=== PATIENT | female | born 1990 | race African-American/Black ===

== ENCOUNTER 2022-01-16 14:49 | Outpatient (CLI) | payer BC, SELFPAY ==
--- NOTE | ~2022-01-16 | US_ITS ---
EXAMINATION: US OB <= 14 weeks fetus DATE: 01/16/2022 16:14 INDICATION: Encounter for supervision of normal . First trimester. TECHNIQUE: Real-time transabdominal and transvaginal pelvic ultrasound was performed. COMPARISON: None. FINDINGS: TRANSABDOMINAL ULTRASOUND: The uterus measures 17.2 x 11.1 x 8.6 cm. TRANSVAGINAL ULTRASOUND: There are two intrauterine gestational sacs divided by a thin membrane with subjectively normal volume of fluid in each sac. The placenta(s) is/are fundal. Fetus A is closer to the cervix with crown rump length measuring 7.0 cm, which correlates with an estimated gestational a ge of 13 weeks and 1 day +/- 1 week and 1 day. Fetus B is more fundal and to the right with crown rum p length of 7.1 cm, which correlates with an estimated gestational age of 13 weeks and 2 days +/- 1 w ho-chunk and 1 day. heart motion is identified measuring 155 beats per minute (bpm) in Fetus A and 147 bpm in Fetus B by M-mode Doppler. There is a 9.2 cm subserosal fibroid in the lower uterine segme nt. The right ovary is not visualized. The left ovary measures 4.3 x 2.5 x 3.5 cm. There is no free f luid in the pelvis. IMPRESSION: 1. Living diamniotic twins, which may be monochorionic or dichorionic with estimated date of deliver y of 07/22/22. 2. Large uterine fibroid. Reviewed, dictated and finalized at location E. IMPRESSION: 1. Living diamniotic twins, which may be monochorionic or dichorionic with est imated date of delivery of 07/22/22. 2. Large uterine fibroid.
== END 2022-01-16 14:50 | disposition home or self-care (01) ==
PROVIDERS: Visit Provider Obstetrics & Gynecology
DX: O30.031 Twin pregnancy, monochorionic/diamniotic, first trimester (principal); D25.9 Leiomyoma of uterus, unspecified; Z3A.00 Weeks of gestation of pregnancy not specified
CPT/HCPCS: 76801

== ENCOUNTER 2022-02-27 00:30 | Emergency (ER) | payer BC, SELFPAY ==
--- NOTE | 2022-02-27 01:03 | ED.PREGNANCY ---
HPI - General Chief complaint: Vaginal Bleeding <Heather Paulino PA-C - Last Filed: 02/27/22 03:44> Stated complaint: vaginal bleeding, 18wks preg <CLAY Trujillo Last Filed: 02/27/22 03:44> Time Seen by Provider: 02/27/22 00:42 <CLAY Trujillo Last Filed: 02/27/22 03:44> Source: patient <CLAY Trujillo Last Filed: 02/27/22 03:44> Mode of arrival: ambulatory <CLAY Trujillo Last Filed: 02/27/22 03:44> Limitations: no limitations <CLAY Trujillo Last Filed: 02/27/22 03:44> History of Present Illness HPI Narrative: Patient is a 32-year-old female who presents the ED with report of vaginal spotting. Patient is currently 18 weeks with twins. She had been seeing Dr. Tracey with [facility] until last week. She is in the process of transferring her care to [facility] with maternal- medicine there. She is scheduled to have her first appointment next week. Patient reports she went to the bathroom around midnight 02/27 and noticed light brown vaginal spotting with wiping. She denied any bright red blood. She has not noticed any further spotting since then. She denies any cramping pain. Denies any headache, vision changes, nausea, vomiting, swelling. She has been feeling well the last couple days. She denies ever having vaginal bleeding like this before throughout her . She denies any recent strenuous activity, intercourse, physical exertion. <Heather Paulino PA-C - Last Filed: 02/27/22 03:44> Related Data Allergies/Adverse reactions: Allergies Allergy/AdvReac Type Severity Reaction Status Date / Time No Known Allergies Allergy Unverified 11/28/13 08:35 <CLAY Trujillo Last Filed: 02/27/22 03:44> Review of Systems Review of Systems: CONSTITUTIONAL: Denies fever, chills, or sweats. EYES: Denies visual changes. CARDIOVASCULAR: Denies chest pain. RESPIRATORY: Denies dyspnea. GASTROINTESTINAL: Denies abdominal pain or cramping, nausea, vomiting, or diarrhea. GENITOURINARY: Reports light brown vaginal spotting. Denies bright red bleeding, dysuria or hematuria. MUSCULOSKELETAL: Denies back pain. NEUROLOGIC: Denies headache, numbness, or weakness. <Heather Paulino PA-C - Last Filed: 02/27/22 03:44> All systems reviewed & are unremarkable except as noted in HPI and below <Heather Paulino PA-C - Last Filed: 02/27/22 03:44> PMFSH Past Medical History Medical History: Medical History (Updated 02/27/22 @ 03:32 by Heather Paulino PA-C) No pertinent past medical history <Heather Paulino PA-C - Last Filed: 02/27/22 03:44> Surgical History Surgical History: Surgical History (Updated 02/27/22 @ 01:12 by Heather Paulino PA-C) No significant past surgical history <Heather Paulino PA-C - Last Filed: 02/27/22 03:44> Social History Social History: Social History (Updated 02/27/22 @ 01:12 by Heather Paulino PA-C) Smoking status: Never smoker <Heather Paulino PA-C - Last Filed: 02/27/22 03:44> Exam Narrative: GENERAL: Well appearing, well-nourished, non-toxic, in no acute distress. HEAD: Normocephalic, atraumatic. NECK: Supple. No adenopathy, no masses. RESPIRATORY: Airway patent, respirations nonlabored. Clear to auscultation bilaterally, no rales, rhonchi, wheezing. CARDIOVASCULAR: Regular rate and rhythm without murmurs, rubs, or gallops. Peripheral pulses 2+ and equal bilaterally. ABDOMINAL: Soft, uterus gravid, no tenderness to palpation, nondistended, no hepatosplenomegaly. PELVIC: Normal external genitalia. Cervical os closed. No CMT. Mild amount of physiologic discharge. Very scant amount of light pink blood. No pooling of blood. No bright red blood. MUSCULOSKELETAL: Moves all extremities. Strength/ROM intact without gross deformities or TTP. No edema. SKIN: Warm, dry, normal color. No rashes. NEURO: A&O X3. Speech clear. Cranial nerves II-XII grossly intact. Steady gait. No ataxic m
[2022-02-27 01:14] VITALS: BP 137/80; PULSE 91; RESP 18; O2SAT 99
[2022-02-27 01:29] VITALS: BP 150/82; PULSE 91; RESP 16; TEMP 36.8; O2SAT 98
[2022-02-27 01:58] LABS: Basophils Percent Auto 0.2 % (0.2-1.2); Eosinophils Absolute Auto 0.3 K/mm3 (0-0.3); Eosinophils Percent Auto 3.4 % (0-4.4); Hematocrit 30.5 % (37.0-47.0); Hemoglobin 10.2 g/dL (12.0-15.0); Immature Granulocyte Absolute 0.04 K/mm3 (0.00-0.031); Immature Granulocyte Percent A 0.5 % (0-0.5); Lymphocytes Percent Auto 22.5 % (18.3-44.2); Mean Corpuscular HGB Conc 33.4 g/dl (32-36); Mean Corpuscular Hemoglobin 31.2 pg (26-34); Mean Corpuscular Volume 93.3 fl (80-100); Mean Platelet Volume 9.8 fl (7.4-10.4); Monocytes Absolute Auto 0.7 K/mm3 (0.1-0.6); Monocytes Percent Auto 8.3 % (2.6-8.5); Neutrophils Absolute Auto 5.5 K/mm3 (1.3-6.7); Neutrophils Percent Auto 65.1 % (45.5-73.1); Platelet Count Result 230 k/mm3 (150-375); Red Blood Count 3.27 M/mm3 (4.2-5.4); Red Cell Distribution Width 13.4 % (11.5-14.5); White Blood Count 8.5 K/mm3 (4.5-10.0)
[2022-02-27 02:05] LABS: Appearance Urine Clear (Clear); Bilirubin Urine Negative (Negative); Color Urine Yellow (Yellow); Glucose Urine UA Negative (Negative); Ketones Urine Negative (Negative); Leukocyte Esterase Ur 2+ LEU/UL (Negative); Nitrate Urine Negative (Negative); Protein Urine Negative (Negative); Urobilinogen Urine 0.2 mg/dL (<2.0)
[2022-02-27 02:06] LABS: Bacteria Urine Trace /hpf; RBC Urine 0-2 /hpf (0-2); Squamous Epithelial Cell Urine Few /hpf (Few); WBC Urine 0-3 /hpf
[2022-02-27 02:08] LABS: Add Urine Microscopic? YES; Blood Urine Trace-Intact (Negative)
[2022-02-27 02:10] LABS: Alanine Aminotransferase 36 U/L (6-35); Albumin Level 3.7 g/dL (3.5-5.1); Alkaline Phosphatase 73 U/L (38-126); Anion Gap 5 mmol/L (8-16); Aspartate Amino Transferase 22 U/L (14-36); Bilirubin,Total < 0.1 mg/dL (0.2-1.3); Blood Urea Nitrogen 7 mg/dL (7-17); Calcium 8.9 mg/dL (8.4-10.2); Carbon Dioxide 23 mmol/L (22-30); Chloride 107 mmol/L (98-107); Estimated Glomerular Filt Rate > 60; Glucose 110 mg/dL (65-110); Potassium 3.7 mmol/L (3.4-5.0); Sodium 135 mmol/L (137-145)
[2022-02-27 03:52] VITALS: BP 138/72; PULSE 76; RESP 18; O2SAT 99
== END 2022-02-27 03:55 | disposition home or self-care (01) ==
PROVIDERS: Physician Assistant; Emergency Provider Emergency Medicine
DX: O20.0 Threatened abortion (principal); O30.002 Twin pregnancy, unspecified number of placenta and unspecified number of amniotic sacs, second trimester; Z3A.18 18 weeks gestation of pregnancy
CPT/HCPCS: 36415; 80053; 81001; 85025; 86850; 86900; 86901; 99284

== ENCOUNTER 2024-04-03 10:07 | Emergency (ER) | payer BC, SELFPAY ==
--- NOTE | 2024-04-03 10:11 | ED.ANXIETY ---
HPI - Anxiety General Chief Complaint: Anxiety Stated Complaint: anxiety/stress Time Seen by Provider: 04/03/24 10:11 Source: patient Mode of arrival: ambulatory Limitations: no limitations History of Present Illness HPI narrative: Paramjit is a 34-year-old female presents to the clinic today with complaints of anxiety. She states she has been developing worsening anxiety since she had her twins about two and a half years ago. She relates she does have a phobia of cockroaches and this triggers her anxiety. When she moved into her current house there was a cockroach infestation that has been taken care of, however, she develops worsening anxiety when she thinks about this. She relates she does have social support with her family and boyfriend (father of her children). She has tried to make appointment with a primary care physician, but is unable to get in for an appointment until June since she is new patient. She denies taking anything [id number] for the anxiety, the use of alcohol or recreational drugs, or thoughts of suicide/homicide. She denies any associated palpitations, shortness of breath, or chest pain. MD complaint: anxiety Related Data Home Medications Medication Instructions Recorded Confirmed No Home Medications 04/03/24 04/03/24 Allergies Allergy/AdvReac Type Severity Reaction Status Date / Time No Known Allergies Allergy Unverified 04/03/24 10:09 Review of Systems Review of Systems: Pertinent positives per HPI. Patient denies any fever, chills, rash, headache, visual changes, dizziness, cough, runny nose, sore throat, shortness of breath, chest pain, palpitations, nausea, vomiting, diarrhea, constipation, abdominal pain, or any urinary issues. [facility] Past Medical History Medical History (Updated 04/03/24 @ 10:40 by Ganesh George APRN) No pertinent past medical history Surgical History Surgical History No significant past surgical history Social History Social History Smoking status: Never smoker Alcohol intake: never Substance use: never Substance use type: does not use Comments At the time of my signature, I reviewed and agree with the nursing past medical, surgical, social, and family history. There is no relevant family history pertinent to the patient complaint. Exam Narrative: General: Well-developed, well nourished, in no apparent distress Head: Normocephalic, atraumatic Eyes: Pupils round and reactive to light bilaterally, EOM intact, sclera and conjunctive clear, no discharge, lids normal Neck: Supple, trachea midline Cardio: Regular rate and rhythm, s1 and s2 normal, no murmurs appreciated. Resp: Clear to auscultation bilaterally, no rhonchi, rales, wheezing or rubs. Musculoskeletal: No deformity, non-tender to palpation, grossly normal range of motion, muscle strength strong and equal. Normal gait and station Neuro: No focal deficits Integumentary: [place], warm, and dry, intact without lesion, no rashes. Psych: Alert and oriented x 4, Normal mood and affect, pleasant, good insight and goal oriented. Course Course Emergency Course: Portions of this record may have been created with voice recognition software. Level of Care: Express Care Visit Vital Signs Vital signs: Vital Signs Temperature 36.4 C 04/03/24 10:21 Pulse Rate 70 04/03/24 10:21 Respiratory Rate 16 04/03/24 10:21 Blood Pressure 117/74 04/03/24 10:21 Pulse Oximetry 99 04/03/24 10:21 Oxygen Delivery Room Air 04/03/24 10:21 Temperature 36.4 C 04/03/24 10:21 Pulse Rate 70 04/03/24 10:21 Respiratory Rate 16 04/03/24 10:21 Blood Pressure 117/74 04/03/24 10:21 Pulse Oximetry 99 04/03/24 10:21 Oxygen Delivery Room Air 04/03/24 10:21 Vital signs reviewed MDM - Anxiety MDM Narrative Medical decision making narra
[2024-04-03 10:21] VITALS: BP 117/74; PULSE 70; RESP 16; TEMP 36.4; O2SAT 99
== END 2024-04-03 10:45 | disposition home or self-care (01) ==
PROVIDERS: Emergency Provider Nurse Practitioner Family
DX: F41.9 Anxiety disorder, unspecified (principal)
CPT/HCPCS: 99213; G0463

== ENCOUNTER 2025-04-18 09:54 | Emergency (ER) | payer BC, SELFPAY ==
--- NOTE | ~2025-04-18 | XR_ITS ---
EXAMINATION: XR skull <4V DATE: 04/18/2025 11:18 INDICATION: Occipital pain post injury one week prior TECHNIQUE: Left and right lateral as well as AP and Kaya views of the skull were obtained. COMPARISON: None. FINDINGS: No fractures identified. Specifically the calvarium, singh of the orbits and paranasal sinuses appea r intact. Nasal septum is midline. Mastoid air cells are well-aerated. No air-fluid levels appreciate d within the paranasal sinuses. Soft tissues are unremarkable. IMPRESSION: 1. Normal skull. Reviewed, dictated and finalized at location A. IMPRESSION: 1. Normal skull.
--- NOTE | ~2025-04-18 | XR_ITS ---
EXAMINATION:XR cervical spine 4-5V DATE: 04/18/2025 11:18 INDICATION: Posterior lateral neck pain post injury one week prior TECHNIQUE: AP, lateral, left and right oblique, lateral swimmers and odontoid views of the cervical s pine are provided. COMPARISON: None FINDINGS: 8 degrees cervicothoracic dextrocurvature. There is mild reversal of the normal cervical lordosis in the lower cervical spine centered at C5-C6. No spondylolisthesis or facet subluxation. Odontoid is in tact. Normal atlantoaxial interval. Vertebral body heights are normal. Disc spaces are normal. Cervi mayte facet and uncovertebral joints are normal. No central canal or neural foraminal stenosis. Prevert ebral soft tissues are normal. Visualized apices of lungs are clear. IMPRESSION: 1. Mild cervicothoracic dextrocurvature and mild reversal with reversal of the normal lordosis in the lower cervical spine which could be positional or due to muscle spasm. Reviewed, dictated and finalized at location A.
[2025-04-18 10:03] VITALS: BP 116/63; PULSE 66; RESP 16; TEMP 36.7; O2SAT 98
--- NOTE | 2025-04-18 10:43 | ED.NECK ---
HPI - Neck Pain/Injury General Chief Complaint: Neck Pain/Injury Stated Complaint: neck/head/shoulder pain Time Seen by Provider: 04/18/25 10:30 Source: patient and RN notes reviewed Mode of arrival: ambulatory Limitations: no limitations History of Present Illness HPI Narrative: 35-year-old female presents Express Care complaining of neck pain in the posterior head pain in for approximately 1 week. Patient said she was in bed with her partner they are both repositioning imbedded his left shoulder struck the back of her head. Patient denies any loss of consciousness, dizziness, lightheadedness, nausea, vomiting vision changes, or any other injuries. Since then patient states she persistently has having pain to the back of her head along with neck stiffness. Patient denies any pain with movement of her neck. Patient reports a throbbing sensation to the back her head. She has been trying Tylenol ibuprofen without relief. Patient denies any numbness or tingling. Related Data Allergies Allergy/AdvReac Type Severity Reaction Status Date / Time No Known Allergies Allergy Unverified 04/18/25 09:58 Review of Systems Review of Systems: CONSTITUTIONAL: Denies fever, chills, or sweats. EYES: Denies visual changes, redness, or discharge. ENT: Denies rhinorrhea, congestion, sore throat, or otalgia. CARDIOVASCULAR: Denies chest pain, palpitations, or edema. RESPIRATORY: Denies cough or dyspnea. GASTROINTESTINAL: Denies abdominal pain, nausea, vomiting, or diarrhea. GENITOURINARY: Denies dysuria or hematuria. SKIN: Denies rash or itching. MUSCULOSKELETAL: Denies back pain, joint pain, or myalgia. Positive for neck pain and occipital pain. NEUROLOGIC: Denies headache, numbness, or loss of consciousness or weakness. PSYCHIATRIC: Denies anxiety or depression. All other systems reviewed are negative, except as documented in HPI. [facility] Past Medical History Medical History No pertinent past medical history Surgical History Surgical History No significant past surgical history Social History Social History Smoking status: Never smoker Alcohol intake: never Substance use: never Substance use type: does not use Comments At the time of my signature, I reviewed and agree with the nursing past medical, surgical, social, and family history. There is no relevant family history pertinent to the patient complaint. Exam Narrative: GENERAL: This is a well-nourished, well-developed adult, in no apparent distress. They are non ill-appearing, nontoxic appearing. HEAD: normocephalic, atraumatic. No deformity, bony prominence, or step-off palpated. No raccoon eyes or Stubbs signs. EYES: Sclera clear/white. Conjunctiva normal. Vision is grossly intact. Extraocular movements intact. Pupils PERRLA EARS: External ears normal, auditory canals clear and without drainage, TMs normal without perforation. Hearing grossly intact. No hemotympanum bilaterally. NOSE: External nose normal with no obvious nasal discharge, nasal turbinates without redness, no rhinorrhea. No septal hematoma. THROAT: Mucous membranes moist, posterior pharynx clear, without erythema or swelling. Uvula midline. NECK: Neck supple, non-tender without lymphadenopathy, masses or thyromegaly. No cervical point tenderness. No midline tenderness. No crepitus or step-offs. Tenderness to palpation to the right lateral upper neck. Mild tenderness to palpation to the right lower prior to the right occipital part of the skull. Neck is nontender through full range of motion. CARDIOVASCULAR: Regular rate and rhythm without murmurs, gallops, or rubs. RESPIRATORY: Clear to auscultation. Breath sounds equal bilaterally. No wheezes, rales, or rhonchi. SKIN: warm, Dry, intact with no suspicious lesions or rash, good texture and turgor. NEURO: awake, alert, and oriented to person, place and time. There were no obvious focal neurologic abnormalities. EXTREMITIES: No joint tenderness, effusion, or edema noted. BACK: Nontender without deformity. No CVA tenderness. No thoracic or lumbar point tenderness. No crepitus or step-offs. Course Course Emergency Course: Portions of this record may have been created with voice recognition software Level of Care: Express Care Visit Vital Signs Vital signs: Vital Signs Temperature 98.0 F 04/18/25 10:03 Pulse Rate 66 04/18/25 10:03 Respiratory Rate 16 04/18/25 10:03 Blood Pressure 116/63 04/18/25 10:03 Pulse Oximetry 98 04/18/25 10:03 Oxygen Delivery Room Air 04/18/25 10:03 Temperature 98.0 F 04/18/25 10:03 Pulse Rate 66 04/18/25 10:03 Respiratory Rate 16 04/18/25 10:03 Blood Pressure 116/63 04/18/25 10:03 Pulse Oximetry 98 04/18/25 10:03 Oxygen Delivery Room Air 04/18/25 10:03 Reviewed MDM - Neck Pain/Injury MDM Narrative Medical decision making narrative: Given patient's pain in and persistent issues will go ahead and obtain imaging of her school cervical spine. No midline tenderness, no crepitus or step-offs. No bony prominence, no obvious injury, no deformities to the skull. No neurological symptoms. Patient is nontender through full may mg of motion of her neck. X-ray of skull and cervical spine were negative for any fractures or acute findings. Likely patient has a cervical strain given her injury. Will prescribe her muscle relaxers and have her follow-up with her PCP. Discussed physical exam findings. Advised supportive measures and signs/symptoms to go to the ER. Pt is appropriate for outpt treatment and f/u. Differential Diagnosis Differential diagnosis: Likely whiplash injury to neck, cervical spondylosis, strain of neck muscle and other (Cervical fracture, skull fracture) Imaging Data Radiologist's impression: ITS Impressions Cervical Spine X-Ray 04/18/25 11:33 IMPRESSION: 1. Mild cervicothoracic dextrocurvature and mild reversal with reversal of the normal lordosis in the lower cervical spine which could be positional or due to muscle spasm. Skull X-Ray 04/18/25 11:36 IMPRESSION: 1. Normal skull. Critical Care Time Critical Care Time Critical Care Time: No Discharge Plan Discharge Clinical Impression: Cervical strain Qualifiers: Encounter type: initial encounter Qualified Code(s): S16.1XXA - Strain of muscle, fascia and tendon at neck level, initial encounter Patient Disposition: Home Condition: Stable Instructions: Cervical Strain (ED) Additional Instructions: The x-ray of your neck and skull are negative for any fractures or acute findings. Take the muscle relaxer as directed. Do not drive or operate heavy machine, or work while taking the medication as it can make you drowsy. You may take Tylenol or ibuprofen as needed for pain. Follow the instructions on the bottle. Please follow-up with your primary care provider if pain persist Rest. Avoid pushing, pulling, lifting or anything that worsens the symptoms Go to the emergency department if you develop any numbness or tingling, unable to move your arm or leg, your headaches, vision changes, dizziness, nausea, vomiting weakness in your legs, or any loss of bowel or bladder function or any serious concerns. Patient Language: Kyrgyz Prescriptions: New methocarbamol 750 mg tablet 750 mg PO TID Qty: 12 0RF Follow-up/Referrals: PHYSICIAN,GAS PIPE LAYER [Primary Care Provider] - Stand Alone Forms: Work/School Release IP Time of Disposition: 11:54
== END 2025-04-18 12:02 | disposition home or self-care (01) ==
DX: S16.1XXA Strain of muscle, fascia and tendon at neck level, initial encounter (principal); W50.0XXA Accidental hit or strike by another person, initial encounter
CPT/HCPCS: 70250; 72050; 99214; G0463